=== PATIENT | female | born 1975 | race Two or more races ===

== ENCOUNTER 2018-12-21 10:00 | Emergency (ER) | payer OTHER ==
[2018-12-21 10:13] VITALS: BP 112/89; PULSE 70; TEMP 97.2; BMI 43.0
--- NOTE | 2018-12-21 10:25 | PDOC ---
History of Present Illness - General Chief Complaint: Nausea Stated Complaint: LOWER BACK PAIN/ HEADACHE Time Seen by Provider: 12/21/18 10:22 History Source: Patient - History of Present Illness Timing/Duration: reports: other Past History - Past Medical History Allergies/Adverse Reactions: Allergies Allergy/AdvReac Type Severity Reaction Status Date / Time No Known Allergies Allergy Verified 12/21/18 10:09 COPD: No CHF: No DVT: No Dementia: No Seizures: Yes (HYPO) - Immunization History Immunization Up to Date: Yes - Psycho Social/Smoking Cessation Hx Smoking History: Never smoked Hx Alcohol Use: No Drug/Substance Use Hx: No Review of Systems - Review of Systems Constitutional: No: Chills, Fever ABD/GI: Yes: Abdominal cramping. No: Nausea, Vomiting : No: Dysuria, Flank Pain, Hematuria *Physical Exam - Vital Signs Last Vital Signs Temp Pulse Resp BP Pulse Ox 97.2 F L 70 17 112/89 100 12/21/18 10:10 12/21/18 10:10 12/21/18 10:10 12/21/18 10:10 12/21/18 10:10 - Physical Exam General Appearance: Yes: Appropriately Dressed. No: Apparent Distress HEENT: positive: Normal Voice Neck: positive: Supple Respiratory/Chest: negative: Respiratory Distress Gastrointestinal/Abdominal: positive: Soft. negative: Tender Musculoskeletal: negative: CVA Tenderness Integumentary: positive: Dry, Warm Neurologic: positive: Fully Oriented, Alert, Normal Mood/Affect Medical Decision Making - Medical Decision Making 12/21/18 10:42 43-year-old female, history of endometriosis hyperthyroid here with amenorrhea. Patient states she is getting monthly periods up until October of this year. For the past few days, have had lower abdominal cramping and lower back pain similar to when she is about to get a period. No dysuria, nausea, vomiting, fever or chills. Patient's mother was around her age when she went into menopause See exam Amenorrhea M/l perimenopausal/menopausal Upreg neg here Dc w/ [facility] referral Discharge - Discharge Information Problems reviewed: Yes Clinical Impression/Diagnosis: Amenorrhea Condition: Good Disposition: HOME - Follow up/Referral Referrals: Shannon Loyola MD [Staff Physician] - - Patient Discharge Instructions Additional Instructions: Please follow-up with [facility] for further evaluation - Post Discharge Activity
== END 2018-12-21 10:47 | disposition home or self-care (01) ==
LOC: JERFT 10:00
DX: N91.0 Primary amenorrhea (principal); E05.90 Thyrotoxicosis, unspecified without thyrotoxic crisis or storm; Z87.42 Personal history of other diseases of the female genital tract
CPT/HCPCS: 84703; 99281-25

== ENCOUNTER 2022-07-30 00:33 | Emergency (ER) | payer OTHER ==
[2022-07-30 00:44] VITALS: BP 109/74; PULSE 63; RESP 17; TEMP 97.6; BMI 45.7
[2022-07-30] MEDS ORDERED: ACETAMINOPHEN 1000 MG/100 ML BAG IVPB ONE (01:26)
[2022-07-30] MEDS ORDERED: SODIUM CHLORIDE 0.9% 500 ML INFUS.BAG IV ONE (01:26)
[2022-07-30] MEDS ORDERED: KETOROLAC TROMETHAMINE 15 MG/ML VIAL IVPUSH ONE (01:26)
[2022-07-30] MEDS ORDERED: ONDANSETRON 4 MG/2 ML VIAL IVPUSH ONE (01:27)
[2022-07-30] MEDS ORDERED: ONDANSETRON 4 MG/2 ML VIAL ONE (01:48)
[2022-07-30] MEDS ORDERED: ACETAMINOPHEN INJECTION 100 ML IVPB ONE (01:48)
[2022-07-30] MEDS ORDERED: KETOROLAC TROMETHAMINE 15 MG/ML VIAL ONE (01:48)
[2022-07-30 02:17] LABS: BASO % 1.1 % (0-2.0); HEMATOCRIT 31.4 % (32.4-45.2); HEMOGLOBIN 10.3 GM/dL (10.7-15.3); LYMPH % 27.8 % (8-40); MCH 27.5 pg (25.7-33.7); MCHC 32.7 g/dl (32.0-36.0); MEAN CELL VOLUME 84.1 fl (80-96); MEAN PLT VOLUME 10.3 fl (7.5-11.1); NEUT % 61.1 % (42.8-82.8); PLATELET COUNT 138 10^3/uL (134-434); RBC 3.74 M/mm3 (3.60-5.2); RDW 17.1 % (11.6-15.6); WHITE BLOOD COUNT 5.2 K/mm3 (4.0-10.0)
[2022-07-30 02:23] LABS: INR 1.03 (0.83-1.09)
[2022-07-30 02:26] LABS: ACTIVATED PTT 31.2 SECONDS (25.2-36.5)
[2022-07-30 02:27] LABS: POTASSIUM 4.2 mmol/L (3.5-5.1)
[2022-07-30 02:29] LABS: CALCIUM 8.1 mg/dL (8.5-10.1)
[2022-07-30 02:30] LABS: ALBUMIN 3.4 g/dl (3.4-5.0); BLOOD UREA NITROGEN 13.1 mg/dL (7-18); MAGNESIUM 2.2 mg/dL (1.8-2.4)
[2022-07-30 02:35] LABS: BILIRUBIN,TOTAL 0.2 mg/dL (0.2-1); TOT PROT 7.2 g/dl (6.4-8.2)
[2022-07-30] MEDS ORDERED: morphine CARPU-JECT 4 MG/1 ML DISP.SYRIN IVPUSH ONE (03:36)
[2022-07-30] MEDS ORDERED: morphine SULFATE 4 MG/ML VIAL ONE (03:48)
[2022-07-30 04:38] LABS: EPI CELLS >36 /uL (0-25.1); HYALINE CASTS 1 /uL (0-3.1); PH,URINE 5.5 (5.0-8.0); URINE APPEARANCE CLOUDY; URINE BACTERIA 8467 /uL (0-1359); URINE BILIRUBIN NEGATIVE (NEGATIVE); URINE COLOR YELLOW; URINE GLUCOSE (UA) NEGATIVE (NEGATIVE); URINE KETONE NEGATIVE (NEGATIVE); URINE LEUK ESTERASE 3+ (NEGATIVE); URINE NITRITE NEGATIVE (NEGATIVE); URINE PROTEIN NEGATIVE (NEGATIVE); URINE RBC 10 /uL (0-23.9); URINE UROBILINOGEN 0.2 mg/dL (0.2-1.0); URINE WBC 431 /uL (0-25.8)
[2022-07-30] MEDS ORDERED: SULFAMETHOXAZOLE/TRIMETHOPRIM 800MG/160MG D.S. TABLET PO ONE (04:54)
[2022-07-30] MEDS ORDERED: SULFAMETHOXAZOLE/TRIMETHOPRIM 800MG/160MG D.S. TABLET ONE (04:58)
== END 2022-07-30 05:08 | disposition home or self-care (01) ==
LOC: JER 00:33
PROC: 3E033NZ Introduction of Analgesics, Hypnotics, Sedatives into Peripheral Vein, Percutaneous Approach (ICD-10-PCS; principal; 2022-07-30)
PROC: 3E0333Z Introduction of Anti-inflammatory into Peripheral Vein, Percutaneous Approach (ICD-10-PCS; 2022-07-30)
PROC: 3E033GC Introduction of Other Therapeutic Substance into Peripheral Vein, Percutaneous Approach (ICD-10-PCS; 2022-07-30)
PROC: 3E033GC Introduction of Other Therapeutic Substance into Peripheral Vein, Percutaneous Approach (ICD-10-PCS; 2022-07-30)
DX: M54.50 Low back pain, unspecified (principal); R10.9 Unspecified abdominal pain; N12 Tubulo-interstitial nephritis, not specified as acute or chronic; R30.0 Dysuria; R11.0 Nausea; Z20.822 Contact with and (suspected) exposure to COVID-19
CPT/HCPCS: 0241U-QW; 36415; 74176-TC; 80053; 81003; 83690; 83735; 84703; 85025; 85610; 85730; 86850; 86900; 86901; 87086; 96374; 96375; 99284-25

== ENCOUNTER 2022-07-30 20:14 | Emergency (ER) | payer OTHER ==
[2022-07-30 20:26] VITALS: BP 130/85; PULSE 74; RESP 18; TEMP 97.7; BMI 45.1
== END 2022-07-30 22:46 | disposition left against medical advice (07) ==
LOC: JER 20:14
DX: R10.9 Unspecified abdominal pain (principal); R07.9 Chest pain, unspecified; F41.9 Anxiety disorder, unspecified
CPT/HCPCS: 93005; 93010; 99281-25

== ENCOUNTER 2022-09-17 05:13 | Day surgery (SDC) | payer OTHER ==
[2022-09-17 10:33] VITALS: BMI 42.0
[2022-09-17] MEDS ORDERED: LIDOCAINE VISCOUS 2% ORAL/TOP 15 ML UNIT-DOSE CUP ONE (11:50)
[2022-09-17] MEDS ORDERED: LIDOCAINE VISCOUS 2% ORAL/TOP 15 ML UNIT-DOSE CUP MM ONE (11:58)
[2022-09-18 07:38] VITALS: TEMP 97.9
[2022-09-18 07:42] VITALS: BP 128/73; PULSE 61; RESP 14
== END 2022-09-17 13:00 | disposition home or self-care (01) ==
LOC: JASU-ENDO 05:13
PROVIDERS: ATTEND Student in an Organized Health Care Education/Training Program
PROC: 0DB78ZX Excision of Stomach, Pylorus, Via Natural or Artificial Opening Endoscopic, Diagnostic (ICD-10-PCS; 2022-09-17)
PROC: 0DB68ZX Excision of Stomach, Via Natural or Artificial Opening Endoscopic, Diagnostic (ICD-10-PCS; 2022-09-17)
PROC: 0DB48ZX Excision of Esophagogastric Junction, Via Natural or Artificial Opening Endoscopic, Diagnostic (ICD-10-PCS; principal; 2022-09-17 12:00)
DX: K20.90 Esophagitis, unspecified without bleeding (principal); K22.2 Esophageal obstruction; K44.9 Diaphragmatic hernia without obstruction or gangrene; K29.50 Unspecified chronic gastritis without bleeding
CPT/HCPCS: 81025

== ENCOUNTER 2023-06-08 23:05 | Emergency (ER) | payer OTHER ==
[2023-06-08 23:15] VITALS: BP 117/71; PULSE 81; RESP 18; TEMP 98.8; BMI 44.2
[2023-06-09] MEDS: SODIUM CHLORIDE 0.9% 500 ML INFUS.BAG IV ONE (00:28)
[2023-06-09] MEDS: ACETAMINOPHEN 1000 MG/100 ML BAG IVPB ONE (00:28)
[2023-06-09 00:41] LABS: BASO % 0.9 % (0-2.0); EOS % 0.6 % (0-4.5); HEMATOCRIT 32.3 % (32.4-45.2); HEMOGLOBIN 10.4 GM/dL (10.7-15.3); LYMPH % 22.3 % (8-40); MCH 27.7 pg (25.7-33.7); MCHC 32.1 g/dl (32.0-36.0); MEAN CELL VOLUME 86.3 fl (80-96); MEAN PLT VOLUME 11.3 fl (7.5-11.1); MONO % 8.7 % (3.8-10.2); NEUT % 67.5 % (42.8-82.8); PLATELET COUNT 126 10^3/uL (134-434); RBC 3.75 M/mm3 (3.60-5.2); WHITE BLOOD COUNT 6.7 K/mm3 (4.0-10.0)
[2023-06-09 00:47] LABS: INR 1.1 (0.83-1.09); PROTHROMBIN TIME (PATIENT) 12.7 SEC (9.7-13.0)
[2023-06-09 00:50] LABS: ACTIVATED PTT 29.7 SECONDS (25.2-36.5)
[2023-06-09 01:04] LABS: POTASSIUM 3.9 mmol/L (3.5-5.1)
[2023-06-09 01:06] LABS: ALBUMIN 3.6 g/dl (3.4-5.0); CALCIUM 8.5 mg/dL (8.5-10.1)
[2023-06-09 01:10] LABS: CREATININE 0.9 mg/dL (0.55-1.3)
[2023-06-09 01:12] LABS: BILIRUBIN,TOTAL 0.2 mg/dL (0.2-1); TOT PROT 7.3 g/dl (6.4-8.2)
[2023-06-09] MEDS ORDERED: KETOROLAC TROMETHAMINE 30 MG/1 ML VIAL ONE (02:20)
[2023-06-09] MEDS: KETOROLAC TROMETHAMINE 30 MG/1 ML VIAL IM ONE (02:56)
[2023-06-09 04:33] LABS: PH,URINE 5.5 (5.0-8.0); URINE APPEARANCE CLEAR; URINE BILIRUBIN NEGATIVE (NEGATIVE); URINE COLOR YELLOW; URINE GLUCOSE (UA) NEGATIVE (NEGATIVE); URINE KETONE NEGATIVE (NEGATIVE); URINE PROTEIN NEGATIVE (NEGATIVE); URINE UROBILINOGEN 0.2 mg/dL (0.2-1.0)
[2023-06-09 04:34] LABS: EPI CELLS 70.1 /uL (0-25.1); HYALINE CASTS 0.58 /uL (0-3.1); URINE BACTERIA 1698.4 /uL (0-1359); URINE LEUK ESTERASE NEGATIVE (NEGATIVE); URINE NITRITE NEGATIVE (NEGATIVE); URINE RBC 10.7 /uL (0-23.9); URINE WBC 50.2 /uL (0-25.8)
== END 2023-06-09 04:11 | disposition home or self-care (01) ==
LOC: JER 23:05
PROC: 3E030NZ Introduction of Analgesics, Hypnotics, Sedatives into Peripheral Vein, Open Approach (ICD-10-PCS; principal; 2023-06-09)
PROC: 3E0233Z Introduction of Anti-inflammatory into Muscle, Percutaneous Approach (ICD-10-PCS; 2023-06-09)
DX: R10.32 Left lower quadrant pain (principal); M54.50 Low back pain, unspecified; R11.0 Nausea
CPT/HCPCS: 36415; 74177-TC; 80053; 81003; 85025; 85610; 85730; 87086; 99285-25; J0131; Q9967

== ENCOUNTER 2024-08-13 06:35 | Day surgery (SDC) | payer OTHER ==
[2024-08-12 10:24] VITALS: BMI 43.9
[2024-08-13 10:33] VITALS: RESP 18; TEMP 98
[2024-08-13 12:08] VITALS: BP 132/75; PULSE 66
== END 2024-08-13 11:30 | disposition home or self-care (01) ==
LOC: JASU-ENDO 06:35
PROVIDERS: ATTEND Student in an Organized Health Care Education/Training Program
PROC: 0DB78ZX Excision of Stomach, Pylorus, Via Natural or Artificial Opening Endoscopic, Diagnostic (ICD-10-PCS; 2024-08-13)
PROC: 0DB68ZX Excision of Stomach, Via Natural or Artificial Opening Endoscopic, Diagnostic (ICD-10-PCS; 2024-08-13)
PROC: 0DB48ZX Excision of Esophagogastric Junction, Via Natural or Artificial Opening Endoscopic, Diagnostic (ICD-10-PCS; principal; 2024-08-13 10:00)
DX: K21.00 Gastro-esophageal reflux disease with esophagitis, without bleeding (principal); K29.50 Unspecified chronic gastritis without bleeding
CPT/HCPCS: 88305-TC; 88342-TC

== ENCOUNTER 2024-11-04 06:08 | Day surgery (SDC) | payer OTHER ==
[2024-11-02 15:54] VITALS: BMI 43.1
[2024-11-04] MEDS ORDERED: LIDOCAINE 1%/EPI 1:100000 (20 ML MULTI DOSE VIAL) ONE (07:21)
[2024-11-04] MEDS ORDERED: EPINEPHrine 1:1000 P/F - 1 MG/ML AMP ONE (07:21)
[2024-11-04] MEDS ORDERED: ROCURONIUM BROMIDE 50 MG/5 ML SYRINGE ONE (07:39)
[2024-11-04] MEDS ORDERED: SUCCINYLCHOLINE CHLORIDE 200 MG/10 ML SYRINGE ONE (07:39)
[2024-11-04] MEDS ORDERED: PROPOFOL 20 ML ONE (07:39)
[2024-11-04] MEDS ORDERED: MIDAZOLAM HCL 2 MG/2 ML SINGLE DOSE VIAL ONE (07:39)
[2024-11-04] MEDS ORDERED: BACITRACIN ZINC 15 GM TUBE TOPICAL OINTMENT ONE (08:27)
[2024-11-04] MEDS ORDERED: SUGAMMADEX SODIUM 200 MG/2 ML VIAL ONE (09:11)
[2024-11-04] MEDS ORDERED: ONDANSETRON 4 MG/2 ML VIAL ONE (09:59)
[2024-11-04] MEDS: ACETAMINOPHEN 1000 MG/100 ML BAG IVPB ONE (10:08)
[2024-11-04] MEDS: ONDANSETRON 4 MG/2 ML VIAL IVPUSH ONE (10:31)
[2024-11-04] MEDS ORDERED: ACETAMINOPHEN 1000 MG/100 ML BAG IVPB ONE (10:33)
[2024-11-04 13:16] VITALS: RESP 20; TEMP 97.7
[2024-11-04 13:27] VITALS: BP 114/52; PULSE 72
== END 2024-11-04 13:05 | disposition home or self-care (01) ==
LOC: JASU-SURG 06:08
PROVIDERS: ATTEND Otolaryngology
PROC: 09BL8ZZ Excision of Nasal Turbinate, Via Natural or Artificial Opening Endoscopic (ICD-10-PCS; 2024-11-04)
PROC: 09BM8ZZ Excision of Nasal Septum, Via Natural or Artificial Opening Endoscopic (ICD-10-PCS; principal; 2024-11-04 08:26)
DX: J34.2 Deviated nasal septum (principal); J34.3 Hypertrophy of nasal turbinates
CPT/HCPCS: 88304-TC; 88311-TC; 94760